=== PATIENT | female | born 1965 | race Caucasian/White ===

== ENCOUNTER 2025-04-05 05:40 | Emergency (ER) | payer SELFPAY ==
[2025-04-05 05:42] VITALS: BP 147/94
[2025-04-05 06:50] VITALS: BP 136/86
--- NOTE | 2025-04-05 07:12 | ED.GENMED ---
History of Present Illness
General
Chief Complaint: Fall
Source: patient
Time Seen by Provider: 04/05/25 07:04
History of Present Illness
History of Present Illness:
59-year-old female presents to the emergency room for evaluation of injury suffered from a fall. Patient was at work when she either tripped over the stool or her knee gave out and she fell striking her head. She does not recall the actual injury
and cannot say if she lost consciousness but next remembers holding her head. She has a headache now and feels achy all over. 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 Patient also complaining of left knee pain, right hip
pain. She was ambulatory after the fall.
Phy Exam
Physical Exam
Physical Exam:
General: Awake, Alert, Oriented X3. No acute distress.
Vitals: unremarkable
Head:
Eyes: Pupils equal, EOMI
Throat: Airway intact, no exudates
Neck: No tenderness to palpation midline spine
Lungs: Clear and equal b/l
Heart: Regular rate, no murmurs
Abd: Soft, Nontender, No pulsatile mass
Neuro: Nonfocal
Skin: Warm, dry, no rash
Extremities: pulses equal b/l, no edema. Tender to palpation medial left knee.
Course
Orders/Labs/Results
Orders:
Orders
04/05/25 05:48
CT Head W/o Iv Contrast Urgent
Comment:
Reason For Exam: fall, unknown LOC
04/05/25 07:11
Knee, Left 4 or More Views [CR Knee - Left 4 Or More View*] Urgent
Comment:
Reason For Exam: pain after fall
04/05/25 07:12
Acetaminophen [Tylenol] 1,000 mg PO NOW STA
Vital Signs
Initial and Last Documented VS:
Initial Vital Signs
Temp Pulse Resp BP Pulse Ox
98.3 F 91 16 147/94 100
04/05/25 05:42 04/05/25 05:42 04/05/25 05:42 04/05/25 05:42 04/05/25 05:42
Last Documented Vital Signs
Temp Pulse Resp BP Pulse Ox
98.3 F 84 18 136/86 97
04/05/25 05:42 04/05/25 06:50 04/05/25 06:50 04/05/25 06:50 04/05/25 07:14
MDM/Problems Addressed
Differential Diagnosis Includes:
Knee sprain, head injury, contusion, subdural
MDM/Problems Addressed:
Head CT shows no acute injuries. The x-ray shows no fractures. Stable for discharge home and follow-up with her primary care provider. Tylenol Motrin for pain.
*Radiology
Radiology exam reviewed: radiology read reviewed
*Pulse Oximetry
SaO2: 97
Oxygen Mode of Delivery: Room air
Patient hypoxic: no
*Critical Care Note
Total Time (30-74mins, 75-104mins- exclusive of procedures): Not Applicable
ED Attending Note
-
Portions of this chart may have been created with voice recognition software.� Occasional wrong word or��sound alike� substitutions may have occurred due to the inherent limitations of voice recognition software.
Discharge Plan
Departure
Patient Disposition: Home (Routine Discharge)
Date of Disposition: 04/05/25
Time of Disposition: 08:51
Patient with high blood pressure during this ER visit?: Yes
Condition: Good
Discharge Problem:
Head injury, Brain concussion
Instructions: Concussion, Adult (DC), Knee sprain, BLOOD PRESSURE
Referrals:
Debbie Bradley CRNP [Family Provider]
Stand Alone Forms: Return to Work
Interventions
Interventions:
*Risk Screen - Suicide Last Done: 04/05/25 05:42
*General Assessment Last Done: 04/05/25 05:42
*Neglect/Abuse Screening Last Done: 04/05/25 05:42
*ED- Fall Risk Assessment Last Done: 04/05/25 06:50
*Nursing Disposition Last Done: 04/05/25 10:06
ED-Musculoskeletal Assessment Last Done: 04/05/25 06:50
ED- Neurological Assessment Last Done: 04/05/25 06:50
ED-Skin Assessment Last Done: 04/05/25 06:50
Discharge Date and Time
Discharge Date/Time: 04/05/25 10:06
Print Language: CHINESE
[2025-04-05] MEDS: TYLENOL 1000 MG PO (07:46)
== END 2025-04-05 10:06 | disposition home or self-care (01) ==
LOC: EMR 05:40
PROVIDERS: EMERGENCY PHYSICIAN Emergency Medicine; FAMILY PHYSICIAN Nurse Practitioner Primary Care
DX: S06.0XAA Concussion with loss of consciousness status unknown, initial encounter (principal); W01.0XXA Fall on same level from slipping, tripping and stumbling without subsequent striking against object, initial encounter
CPT/HCPCS: 99284; 70450; 73564

== ENCOUNTER 2025-04-09 11:12 | Emergency (ER) | payer OTHER, SELFPAY ==
[2025-04-09 11:20] VITALS: BP 142/92
--- NOTE | 2025-04-09 12:58 | EDRN ---
Dr. Marroquin in room w/pt at this time.
[2025-04-09 12:59] VITALS: BP 128/88
--- NOTE | 2025-04-09 13:01 | EDRN ---
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 Pt was seen here in ER post fall. Discharged w/ concussion. Pt arrives for continued and worse headache, top of head and
goes down w/ N/V and dizziness w/ movement. Pt also light sensitive w/ R eye and feels movement in face when closes her eyes and R sided 'droopy feeling' in extremities. Pt continues w/ rib pain saying no fractures noted on her xray on Sunday's
visit, Pt also dizzy w/ walking and walking very slowly. Also feeling weak.
[2025-04-09 13:05] VITALS: BMI 22.6
--- NOTE | 2025-04-09 13:10 | ED.GENMED ---
History of Present Illness
General
Chief Complaint: Head Injury
Time Seen by Provider: 04/09/25 12:40
History of Present Illness
History of Present Illness:
59-year-old female with history of hyperlipidemia and hypothyroidism presenting for persistent headache after a fall. Patient notes that she fell on Sunday, 4 days ago when she was at work. She tripped and struck her head on the concrete. She was
evaluated in the hospital after the fall with multiple musculoskeletal injuries, and a CT of her head that was negative for acute process. Patient diagnosed with concussion. Since the initial fall, has had persistent headache, photophobia, nausea,
vomiting. Denies weakness or numbness to extremities. Reports some dizziness. She is not on any blood thinners. She has been taking Tylenol Motrin for symptoms, has not had any medications today. Denies fever. Denies chest pain or difficulty
breathing. Denies additional acute medical complaints.
Phy Exam
Physical Exam
Physical Exam:
General: Well-appearing, no clinical signs of dehydration, nontoxic and in no acute distress
HEENT: protecting airway, pupils equal and reactive, extraocular movements intact.
Neck: appears supple
CV: Normal heart rate, regular rhythm
Resp: No accessory muscle use, no increased work of breathing, lungs clear to auscultation bilaterally
Abd: Soft and non-distended, no tenderness to palpation
Extremities: No deformities, no swelling
Neuro: alert, no focal neurologic deficit
: deferred
Rectal: deferred
Psych: Normal affect
Skin: Intact
Course
Orders/Labs/Results
Orders:
Orders
04/09/25 11:23
CT Head W/o Iv Contrast Urgent
Comment: s/p fall on Sunday
Reason For Exam: headache, N/V
04/09/25 13:08
0.9% Sodium Chloride 1000 ml [Nss] 1,000 ml IV BOLUS
Diphenhydramine [Benadryl] 25 mg IV NOW STA
Ketorolac [Toradol] 15 mg IV NOW STA
Metoclopramide [Reglan] 5 mg IV NOW STA
Vital Signs
Initial and Last Documented VS:
Initial Vital Signs
Temp Pulse Resp BP Pulse Ox
98.3 F 96 18 142/92 100
04/09/25 11:20 04/09/25 11:20 04/09/25 11:20 04/09/25 11:20 04/09/25 11:20
Last Documented Vital Signs
Temp Pulse Resp BP Pulse Ox
98.3 F 71 16 136/84 99
04/09/25 11:20 04/09/25 14:14 04/09/25 14:14 04/09/25 14:14 04/09/25 14:14
MDM/Problems Addressed
MDM/Problems Addressed:
59-year-old female presenting for persistent headaches, nausea, vomiting after head injury 4 days ago. Vital signs are normal.
On exam patient is resting comfortably, no acute distress or discomfort. The symptoms appear most consistent with postconcussive syndrome. On review of EMR, patient was seen in the ER at time of incident. She had a CT of her head that was
negative for acute process. For this reason, lower suspicion for intracranial process. Patient with no focal neurologic deficits on exam. She is afebrile, nontoxic without concern for infectious pathology. Patient initially seen in triage, with
repeat CT head imaging ordered by nursing. Patient had CT obtained prior to my assessment, no acute process. Will treat patient with migraine cocktail and reassess for improvement. However, at this time ultimately feel that patient is stable for
discharge with continued outpatient supportive therapy.
14:20 -patient reporting symptom improvement. Stable for discharge
*Pulse Oximetry
SaO2: 100
Oxygen Mode of Delivery: Room air
Patient hypoxic: no
*Critical Care Note
Total Time (30-74mins, 75-104mins- exclusive of procedures): Not Applicable
ED Attending Note
-
Portions of this chart may have been created with voice recognition software.� Occasional wrong word or��sound alike� substitutions may have occurred due to the inherent limitations of voice recognition software.
Discharge Plan
Departure
Patient with high blood pressure during this ER visit?: No
Condition: Good
Discharge Problem:
Post-concussion syndrome
Instructions: Concussion, Adult (DC), Head Injury in Adults (DC)
Activity Restrictions/Additional Instructions:
You were seen in the emergency department for headache after a fall
You were found to have a normal CT of your head. We suspect that you have a concussion. Please continue to drink plenty of fluids, rest, take Tylenol and Motrin for headache or pain.
Please follow-up closely with your primary care physician.
Return to the emergency department for any worsening of your symptoms, or any development of chest pain, difficulty breathing, abdominal pain with persistent vomiting and inability to tolerate food or liquid by mouth (concern for dehydration),
weakness, headache or confusion, fever greater than 100.4, or any additional symptoms that are concerning to you.
Thank you for choosing [facility].
Interventions
Interventions:
*Risk Screen - Suicide Last Done: 04/09/25 11:20
*General Assessment Last Done: 04/09/25 12:59
*Neglect/Abuse Screening Last Done: 04/09/25 13:05
*ED- Fall Risk Assessment Last Done: 04/09/25 12:59
*ED COVID-19 Vaccine History Last Done: 04/09/25 12:59
ED- Neurological Assessment Last Done: 04/09/25 12:59
ED-Skin Assessment Last Done: 04/09/25 12:59
Discharge Date and Time
Print Language: [email or web address]
[2025-04-09] MEDS: REGLAN 5 MG IV (13:52)
[2025-04-09] MEDS: BENADRYL 25 MG IV (13:52)
[2025-04-09] MEDS: TORADOL 15 MG IV (13:53)
[2025-04-09] MEDS: NSS 1000 IV (13:55)
[2025-04-09 14:14] VITALS: BP 136/84
--- NOTE | 2025-04-09 14:20 | EDRN ---
Dr. Marroquin in room w/pt and spouse at this time.
== END 2025-04-09 14:55 | disposition home or self-care (01) ==
LOC: EMR 11:12
PROVIDERS: EMERGENCY PHYSICIAN Student in an Organized Health Care Education/Training Program; FAMILY PHYSICIAN Nurse Practitioner Primary Care
DX: R51.9 Headache, unspecified (principal); F07.81 Postconcussional syndrome; E78.5 Hyperlipidemia, unspecified; E03.9 Hypothyroidism, unspecified
CPT/HCPCS: 96374; 99284; 96375; 70450